=== PATIENT | male | born 1935 | race Caucasian/White ===

== ENCOUNTER → 2016-07-07 08:20 | Outpatient (CLI) | payer MEDICARE, BC ==
[2012-03-01 06:52] VITALS: BMI 21.3
== END ==
LOC: D.MRI 08:20
DX: M54.12 Radiculopathy, cervical region (principal)

== ENCOUNTER → 2017-03-23 09:47 | Outpatient (CLI) | payer MEDICARE, BC ==
[2012-03-01 06:52] VITALS: BMI 21.3
== END | disposition home or self-care (01) ==
LOC: D.RAD 09:47
DX: J32.9 Chronic sinusitis, unspecified (principal)

== ENCOUNTER 2017-06-12 13:05 | Inpatient (IN) | payer MEDICARE, BC ==
[~2017-06-12] VITALS: Ht 182.9 cm; Wt 68.5 kg
[2017-06-12 13:40] LABS: BASOPHILS 0.2 % (0-2); EOSINOPHILS 1.4 % (0-7); HEMATOCRIT 34.6 % (42.0-54.0); HEMOGLOBIN 11.4 g/dL (13.5-17.5); IMMATURE GRANULOCYTES 1.1 % (0-5); LYMPHOCYTES 12.7 % (15-50); MCHC 32.9 g/dL (31.0-37.0); NEUTROPHILS 71.6 % (40-80); PLATELET COUNT 188 10x3/uL (130-400); RBC 3.68 10x6/uL (4.20-6.10); RDW 14.6 % (11.5-14.5); WBC 6.5 10x3/uL (4.8-10.8)
[2017-06-12 14:02] LABS: ANION GAP 19.9 mmol/L (8-16); BILIRUBIN - TOTAL 0.28 mg/dL (0.2-1.3); CALCIUM 8.4 mg/dL (8.5-10.1); CREATININE - SERUM 5.6 mg/dL (0.6-1.3); POTASSIUM - SERUM 3.9 mmol/L (3.5-5.1); PROTEIN - SERUM 6.7 g/dL (6.4-8.2)
[2017-06-12 14:55] LABS: APPEARANCE CLEAR (CLEAR); COLOR DK YELLOW (YELLOW)
[2017-06-12 14:59] LABS: BILIRUBIN NEGATIVE (NEGATIVE); GLUCOSE NEGATIVE (NEGATIVE); KETONE NEGATIVE (NEGATIVE); NITRITE NEGATIVE (NEGATIVE); PROTEIN TRACE mg/dL (NEGATIVE); UROBILINOGEN NORMAL (NORMAL)
[2017-06-12 15:00] LABS: BACTERIA FEW /hpf (NONE SEEN); RED CELLS - URINE 0-5 /hpf (0-5); WHITE CELLS - URINE 0-5 /hpf (0-5)
--- NOTE | 2017-06-12 17:23 | NUR ---
RECEIVED REPORT FROM CURT FERNÁNDEZ IN ER. AWAITING PT ARRIVAL.
--- NOTE | 2017-06-12 18:30 | NUR ---
PT ARRIVED TO UNIT VIA STRETCHER. PT IS ALERT AND ORIENTED. UP WITH STANDBY ASSIST. ON ROOM AIR. IV SEEN TO LEFT AC. WILL START FLAGYL AND FLUIDS ORDERED. WILL DO QUICKSTART AND PASS THIS ALONG IN REPORT TO PAYROLL PROFESSIONAL NURSE.
[2017-06-12] MEDS ORDERED: FENOFIBRATE160 MG PO (18:38)
[2017-06-12] MEDS ORDERED: METOPROLOL TART50 MG PO (18:38)
[2017-06-12] MEDS ORDERED: BENICAR20 MG PO (18:39)
[2017-06-12] MEDS ORDERED: TRAZODONE HCL50 MG PO (18:39)
[2017-06-12] MEDS ORDERED: NEURONTIN 300300 MG (18:40)
[2017-06-12] MEDS ORDERED: ATIVAN0.5 MG PO (18:40)
[2017-06-12] MEDS ORDERED: ACETAMINOPHEN325 MG PO (18:41)
--- NOTE | 2017-06-12 18:46 | NUR ---
SCDS PLACED ON PT ORDERED.
[2017-06-12 19:04] LABS: % SATURATION 7 % (15-55); IRON 19 ug/dl (35-150); TOTAL IRON BIND CAPACITY 266 ug/dl (260-445); UNSAT IRON BIND CAPACITY 247 ug/dl (150-375)
--- NOTE | 2017-06-12 19:24 | NUR ---
1830- DR. AWAN CALLS AND IS ASKING ABOUT PT. I INFORMED DR. AWAN THAT I HAVE NOT YET RECEIVED PT. I WAS STATING THIS TO DR. AWAN ER STAFF IS BRINGING PT TO ROOM. DR. AWAN INFORMED OF WHAT I RECEIVED FROM REPORT FROM ER NURSE (PRADEEP). DR. AWAN GIVES ORDERS TO START IV FLUIDS ON PT AT 75CC. DR. AWAN STATES HE WILL SEE PT TOMORROW.
--- NOTE | 2017-06-12 19:35 | NUR ---
RECEIVED REPORT, WILL ASSUME CARE OF PT, PT DENIES ANY NEEDS, FAMILY AT BED SIDE, SCD ARE ON, BED IS LOW, SRX2, CALL LIGHT IN REACH, WILL CONTINUE PLAN OF CARE
[2017-06-12 20:11] VITALS: BP 102/48
[2017-06-13 00:32] VITALS: BP 108/51
--- NOTE | 2017-06-13 00:57 | NUR ---
PT SLEEPING, BED IS LOW, SRX2, SCD ARE ON, CALL LIGHT IN REACH, WILL CONTINUE PLAN OF CARE
[2017-06-13 04:20] VITALS: BP 112/54
[2017-06-13 05:15] LABS: BASOPHILS 0.2 % (0-2); EOSINOPHILS 2.2 % (0-7); HEMATOCRIT 33.3 % (42.0-54.0); HEMOGLOBIN 10.8 g/dL (13.5-17.5); IMMATURE GRANULOCYTES 4.3 % (0-5); LYMPHOCYTES 16.9 % (15-50); MCH 30.8 pg (26.0-34.0); MCHC 32.4 g/dL (31.0-37.0); MCV 94.9 fL (80.0-100.0); MEAN PLATELET VOLUME 10.6 fL (7.4-10.4); MONOCYTES 15.1 % (2-11); NEUTROPHILS 61.3 % (40-80); PLATELET COUNT 182 10x3/uL (130-400); RBC 3.51 10x6/uL (4.20-6.10); RDW 14.9 % (11.5-14.5); WBC 5.6 10x3/uL (4.8-10.8)
[2017-06-13 05:44] LABS: ALBUMIN 2.5 g/dL (3.4-5.0); ANION GAP 18.8 mmol/L (8-16); BILIRUBIN - TOTAL 0.3 mg/dL (0.2-1.3); CALCIUM 8.3 mg/dL (8.5-10.1); POTASSIUM - SERUM 3.8 mmol/L (3.5-5.1); PROTEIN - SERUM 5.7 g/dL (6.4-8.2)
[2017-06-13 05:46] LABS: CREATININE - SERUM 3.6 mg/dL (0.6-1.3)
--- NOTE | 2017-06-13 07:28 | NUR ---
AM ROUNDING- RECEIVED REPORT FROM KINDER TEACHER NURSE FRANCISCO. PT IS CURRENTLY LAYING IN BED ON BACK WITH EYES CLOSED RESTING. ON ROOM AIR. ON MONITOR SHOWING SR, HR 74. IV SEEN TO LEFT AC WITH NS RUNNING AT 75CC. SCDS ARE ON. NO NEED AT THIS CURRENT TIME. WILL CONTINUE TO MONITOR AND CONTINUE WITH PLAN OF CARE.
[2017-06-13 07:46] VITALS: BP 108/55
--- NOTE | 2017-06-13 09:49 | NUR ---
AM MEDICATIONS GIVEN AND SHIFT ASSESSMENT DONE. PT IS LAYING IN BED WITH EYES OPEN RESTING. INFORMED PT THAT WE NEED STOOL SAMPLE AND WHENEVER HE FEELS NEED TO GO TO LET STAFF KNOW, PT AGREES. WILL CONTINUE TO MONITOR.
[2017-06-13 11:55] LABS: ERYTHROCYTE SEDIMENTATION RATE 50 mm/hr (0-20)
[2017-06-13 12:42] VITALS: BP 113/59
[2017-06-13 12:57] VITALS: BMI 20.5
--- NOTE | 2017-06-13 14:16 | NUR ---
IV MEDICATIONS HUNG ORDERED. PT ASSISTED IN BRIEF DUE TO PT ACCIDENTLY GOING IN PRIOR BRIEF. PT IS AWARE TO LET STAFF KNOW IF NEEDING TO URINATE TO GET URINE SAMPLE ORDERED. PT ATTEMPTED TO GET URINE SAMPLE BUT WASN'T ENOUGH. PT IS NPO ORDERED. NPO SIGN PLACED ON PTS DOOR.
[2017-06-13] MEDS ORDERED: NEURONTIN 300300 MG PO (16:06)
[2017-06-13 16:11] LABS: APPEARANCE CLEAR (CLEAR); BILIRUBIN NEGATIVE (NEGATIVE); COLOR DK YELLOW (YELLOW); GLUCOSE NEGATIVE (NEGATIVE); KETONE NEGATIVE (NEGATIVE); NITRITE POSITIVE (NEGATIVE); PROTEIN NEGATIVE (NEGATIVE); UROBILINOGEN NORMAL (NORMAL)
[2017-06-13 16:13] LABS: BACTERIA FEW /hpf (NONE SEEN); WHITE CELLS - URINE OCC /hpf (0-5)
[2017-06-13 16:17] LABS: CREATININE - URINE 158.3 mg/dL (30-125); PRO/CRE RATIO URINE 0.2 mg/g; PROTEIN - URINE 35.1 mg/dL (0.0-11.9)
[2017-06-13 17:00] VITALS: BP 122/62
--- NOTE | 2017-06-13 18:17 | NUR ---
PT IS CURRENTLY LAYING IN BED WITH EYES OPEN RESTING. IS AT BEDSIDE. NO NEED AT THIS CURRENT TIME. WILL CONTINUE TO MONITOR AND CONTINUE WITH PLAN OF CARE.
[2017-06-13 18:38] VITALS: Ht 182.9 cm; Wt 68.5 kg
[2017-06-13 21:29] VITALS: BP 135/64
--- NOTE | 2017-06-13 23:48 | NUR ---
MARLENY IS LAYING ON HIS BACK, RESTING. REQUEST HELP TO THE BATHROOM AND USES IT WITH MINIMAL ASSIST. HE IS IN A PULL UP BUT THE PULL UP IS DRY AND DOES NOT NEED A NEW ONE. IV INFUSING AND SITE LOOKS GOOD, DRESSING IS CLEAN DRY AND INTACT. SCDS IN PLACE. BED LOW, CALL LIGHT IN REACH. PATIENT REQUESTED ICECHIPS. ORDERS OK THE ICE CHIPS.
[2017-06-14 00:48] VITALS: BP 146/62
--- NOTE | 2017-06-14 03:17 | NUR ---
PT IN BED RESTING QUIETLY. BREATHING EVEN AND UNLABORED. BED IN LOW POSITION, CALL LIGHT WITHIN REACH. WILL CTM.
[2017-06-14 05:25] VITALS: BP 142/64
--- NOTE | 2017-06-14 05:39 | NUR ---
IV ON LEFT AC DC. CATHETER INTACT. NEW IV ON LEFT FOREARM STARTED. PATIENT TOLERATED. 2 STICKS .
[2017-06-14 06:12] LABS: BASOPHILS 0.2 % (0-2); EOSINOPHILS 1.8 % (0-7); HEMATOCRIT 27.9 % (42.0-54.0); HEMOGLOBIN 9.5 g/dL (13.5-17.5); IMMATURE GRANULOCYTES 3.7 % (0-5); LYMPHOCYTES 13.1 % (15-50); MCH 31.5 pg (26.0-34.0); MCHC 34.1 g/dL (31.0-37.0); MEAN PLATELET VOLUME 10.7 fL (7.4-10.4); MONOCYTES 12.7 % (2-11); NEUTROPHILS 68.5 % (40-80); PLATELET COUNT 180 10x3/uL (130-400); RBC 3.02 10x6/uL (4.20-6.10); RDW 14.6 % (11.5-14.5); WBC 4.9 10x3/uL (4.8-10.8)
[2017-06-14 06:29] LABS: MCV 92.4 fL (80.0-100.0)
[2017-06-14 06:33] LABS: ALBUMIN 2.3 g/dL (3.4-5.0); BILIRUBIN - TOTAL 0.28 mg/dL (0.2-1.3); CALCIUM 7.5 mg/dL (8.5-10.1); CARBON DIOXIDE 19.1 mmol/L (21.0-32.0); POTASSIUM - SERUM 3.7 mmol/L (3.5-5.1); PROTEIN - SERUM 4.8 g/dL (6.4-8.2)
[2017-06-14 06:37] LABS: ANION GAP 15.6 mmol/L (8-16); CREATININE - SERUM 1.5 mg/dL (0.6-1.3)
--- NOTE | 2017-06-14 07:53 | NUR ---
AM ROUNDS - PT IS IN BED AND AWAKE AT THIS TIME. STAND BY ASSIST. MONITOR SHOWING SR, HR 64. LEFT FA, NS AT 75 (IV INFILTRATED AT THIS TIME). YELLOW BAND ON. SCD ON. BED AT LOWEST POSITION. CALL CRAVEN IN USE/REACH. SIDE RAILS UP X2. WILL CONITNUE TO MONITOR
[2017-06-14 08:09] VITALS: BP 133/88
[2017-06-14 09:15] LABS: FOLATE (FOLIC ACID) - SERUM 17.5 ng/mL (>3.0)
[2017-06-14 12:54] VITALS: BP 145/72
--- NOTE | 2017-06-14 14:50 | NUR ---
UNABLE TO GIVE FERRLECIT AT THIS TIME. MED NOT ON FLOOR. PHARMACY NOTIFIED AT 1330. WILL CONTINUE TO MONITOR
[2017-06-14 15:59] VITALS: BP 144/75
--- NOTE | 2017-06-14 16:42 | NUR ---
PT IN BED AT THIS TIME WITH NO NEEDS. WILL CONTINUE TO MONITOR
[2017-06-14 22:15] VITALS: BP 153/76
[2017-06-15 04:00] VITALS: BP 95/44
--- NOTE | 2017-06-15 04:39 | NUR ---
SUPERVISOR INSECTICIDE AT BEDSIDE TO OBTAIN VITALS, CALL LIGHT IN REACH. WILL CONTINUE WITH PLAN OF CARE.
--- NOTE | 2017-06-15 05:44 | NUR ---
PATIENT RESTING IN DARK ROOM AT THIS TIME. DENIES ANY NEEDS. BED LOW, CALL LIGHT IN REACH.
[2017-06-15 06:02] LABS: BASOPHILS 0.2 % (0-2); EOSINOPHILS 1.6 % (0-7); HEMATOCRIT 30.8 % (42.0-54.0); HEMOGLOBIN 10.5 g/dL (13.5-17.5); IMMATURE GRANULOCYTES 3.9 % (0-5); LYMPHOCYTES 10.9 % (15-50); MCH 30.7 pg (26.0-34.0); MCHC 34.1 g/dL (31.0-37.0); MEAN PLATELET VOLUME 10.3 fL (7.4-10.4); MONOCYTES 16.7 % (2-11); NEUTROPHILS 66.7 % (40-80); PLATELET COUNT 193 10x3/uL (130-400); RBC 3.42 10x6/uL (4.20-6.10); RDW 14.3 % (11.5-14.5); WBC 5.2 10x3/uL (4.8-10.8)
[2017-06-15 06:08] LABS: MCV 90.1 fL (80.0-100.0)
[2017-06-15 06:29] LABS: ALBUMIN 2.6 g/dL (3.4-5.0); ANION GAP 13.2 mmol/L (8-16); BILIRUBIN - TOTAL 0.42 mg/dL (0.2-1.3); CALCIUM 8.7 mg/dL (8.5-10.1); CREATININE - SERUM 1.3 mg/dL (0.6-1.3); POTASSIUM - SERUM 3.2 mmol/L (3.5-5.1); PROTEIN - SERUM 5.7 g/dL (6.4-8.2)
--- NOTE | 2017-06-15 07:51 | NUR ---
RECEIVED REPORT ON PATIENT. MORNING ROUNDS MADE. PATIENT RESTING IN BED WITH EYES CLOSED, CHEST RISES AND FALLS EQUALLY BILAT. BED IN LOWEST POSITION, SR UP X 2, CL IN REACH. CPOC.
[2017-06-15 08:46] VITALS: BP 154/86
--- NOTE | 2017-06-15 10:14 | NUR ---
PATIENT TRANSPORTED TO RADIOLOGY VIA WHEELCHAIR.
--- NOTE | 2017-06-15 11:10 | NUR ---
PATIENT BACK FROM RADIOLOGY. REFUSED SCDS
[2017-06-15 12:07] VITALS: BP 168/92
--- NOTE | 2017-06-15 12:18 | NUR ---
Nutrition follow-up: Pt remains NPO; noted pt have start clears soon Labs reviewed +BM Wt: 156# Will need to start nutrition support if diet unable to advance past clears within 48-72 hours. RDN following.
--- NOTE | 2017-06-15 12:57 | NUR ---
RESTING QUIETLY IN BED WITHOUT DISTRESS NOR COMPLAINTS. WILL CONTINUE TO MONITOR.
[2017-06-15 14:20] LABS: SPE - ALBUMIN 2.6 g/dL (2.9-4.4); SPE - ALPHA-1 GLOBULIN 0.4 g/dL (0.0-0.4); SPE - ALPHA-2 GLOBULIN 0.8 g/dL (0.4-1.0); SPE - BETA GLOBULIN 0.6 g/dL (0.7-1.3); SPE - GAMMA GLOBULIN 0.7 g/dL (0.4-1.8); SPE - M-SPIKE 0.1 g/dL (Not Observed); SPE - TOTAL PROTEIN 5.1 g/dL (6.0-8.5)
[2017-06-15 15:32] LABS: UPE RAND - ALPHA 2 GLOBULIN 25.3 % (()); UPE RAND - GAMMA GLOBULIN 12.7 % (())
--- NOTE | 2017-06-15 15:46 | NUR ---
R.FA PIV INFILTRATED. D/C WITH CATH TIP FULLY INTACT. 20 GUAGE X1 STICK INSERTED TO R.UPPER ARM AND PROCALAMINE @50ML/HR INFUSING. 22 GUAGE X1 STICK INSERTED TO R.WRIST WITH IRON INFUSING. PT DENIES ANY FURTHER NEEDS AT THIS TIME. CL IN REACH.
[2017-06-15 19:00] VITALS: BP 163/89
--- NOTE | 2017-06-15 19:34 | NUR ---
EVENING ROUNDS MADE. PATIENT LAYING IN BED, WATCHING TV. NAD NOTED. BED IN LOWEST POSITION, CALL LIGHT IN REACH, SR UP X 2. DENIES ANY NEEDS AT THIS TIME. REPORT GIVEN TO HOIST CYLINDER LOADER. CPOC.
--- NOTE | 2017-06-15 19:35 | NUR ---
ASSESSMENT COMPLETE, A&O. RESPERATIONS EVEN ON RA. IV TO LEFT AC WITH PROCAL INFUSING AT 50 CC/HR, SECOND IV TO TO LEFT WRIST WITH D5W INFUSING AT 75 CC/HR. BOTH SITES CLEAN AND DRY. PT DENIES PAIN OR NEEDS, BED LOW, CL IN REACH.
--- NOTE | 2017-06-16 03:33 | NUR ---
RESTING WITH EYES CLOSED, RESPERATIONS EVEN, NO S/S DISTRESS NOTED.
[2017-06-16 04:00] VITALS: BP 157/89
[2017-06-16 05:26] LABS: BASOPHILS 0.1 % (0-2); EOSINOPHILS 1.3 % (0-7); HEMATOCRIT 30.4 % (42.0-54.0); HEMOGLOBIN 10.5 g/dL (13.5-17.5); LYMPHOCYTES 9.1 % (15-50); MCH 30.8 pg (26.0-34.0); MCHC 34.5 g/dL (31.0-37.0); MCV 89.1 fL (80.0-100.0); MEAN PLATELET VOLUME 9.9 fL (7.4-10.4); MONOCYTES 16.2 % (2-11); NEUTROPHILS 68.3 % (40-80); PLATELET COUNT 202 10x3/uL (130-400); RBC 3.41 10x6/uL (4.20-6.10)
[2017-06-16 05:40] LABS: WBC 6.7 10x3/uL (4.8-10.8)
[2017-06-16 06:38] LABS: ALBUMIN 2.4 g/dL (3.4-5.0); ALKALINE PHOSPHATASE 48 U/L (46-116); ALT (SGPT) 23 U/L (10-68); AMYLASE - SERUM 155 U/L (25-115); CALC OSMOLALITY 287 mosm/kg (275-300); CALCIUM 8.9 mg/dL (8.5-10.1); CHLORIDE - SERUM 108 mmol/L (98-107); GLUCOSE 135 mg/dL (74-106); MAGNESIUM - SERUM 1.7 mg/dL (1.8-2.4); PHOSPHOROUS 1.8 mg/dL (2.5-4.9); POTASSIUM - SERUM 3.3 mmol/L (3.5-5.1); PROTEIN - SERUM 5.6 g/dL (6.4-8.2); SODIUM 140 mmol/L (136-145); eGFR NON AFRICAN AMERICAN 76 mL/min (90-120)
[2017-06-16 06:39] LABS: LIPASE 1978 U/L (73-393); UREA NITROGEN 33 mg/dL (7-18)
--- NOTE | 2017-06-16 08:01 | NUR ---
AM ROUNDS - PT AWAKE AND IN BED AT THIS TIME. MONITOR SHOWING ST, HR 106. PT ON ROOM AIR. LEFT AC, PROCAL AT 50CC/HR AND LEFT WRIST, D5W AT 75CC/HR. BED AT LOWEST POSITION. CALL CRAVEN INUSE/REACH. SIDE RAILS UP X2. WILL CONTINUE TO MONITOR
[2017-06-16 08:55] VITALS: BP 160/85
[2017-06-16 11:46] VITALS: BP 158/83
--- NOTE | 2017-06-16 14:28 | NUR ---
NOT ABLE TO GIVE FERRLECIT. NOT ON FLOOR AT THIS TIME. PHARMACY NOTIFIED.
--- NOTE | 2017-06-16 14:45 | NUR ---
PT IN BED AT THIS TIME. NO NEEDS. WILL CONTINUE TO MONITOR
[2017-06-16 15:46] VITALS: BP 157/89
--- NOTE | 2017-06-16 20:10 | NUR ---
ENTERED ROOM, PT IN BED WATCHING TV, IV TO LEFT WRIST WITH D5W INFUSING AT 75 CC/HR AND PROCAL INFUSING AT 50 CC/HR TO LEFT FOREARM. RESPERATIONS EVEN ON RA. PT DENIES PAIN OR NEEDS, BED LOW, CL IN REACH.
[2017-06-16 21:04] VITALS: BP 143/85
[2017-06-17 00:52] VITALS: BP 147/81
--- NOTE | 2017-06-17 01:12 | NUR ---
PT RESTING WITH EYES CLOSED. RESP EVEN AND REGULAR. SR UP X2, CALL LIGHT WITHIN REACH.
--- NOTE | 2017-06-17 03:50 | NUR ---
RESTING WITH EYES CLOSED, RESPERATIONS EVEN NO S/S DISTRESS NOTED.
[2017-06-17 05:21] VITALS: BP 160/87
[2017-06-17 06:57] LABS: BASOPHILS 0.1 % (0-2); EOSINOPHILS 1.1 % (0-7); HEMATOCRIT 29.9 % (42.0-54.0); HEMOGLOBIN 10.5 g/dL (13.5-17.5); IMMATURE GRANULOCYTES 4.3 % (0-5); MCH 31.1 pg (26.0-34.0); MCHC 35.1 g/dL (31.0-37.0); MCV 88.5 fL (80.0-100.0); MEAN PLATELET VOLUME 10.3 fL (7.4-10.4); NEUTROPHILS 73.5 % (40-80); PLATELET COUNT 198 10x3/uL (130-400); RBC 3.38 10x6/uL (4.20-6.10); RDW 13.8 % (11.5-14.5); WBC 7.2 10x3/uL (4.8-10.8)
[2017-06-17 07:29] LABS: ALBUMIN 2.4 g/dL (3.4-5.0); ANION GAP 10.7 mmol/L (8-16); BILIRUBIN - TOTAL 0.88 mg/dL (0.2-1.3); CALCIUM 8.9 mg/dL (8.5-10.1); CARBON DIOXIDE 24.4 mmol/L (21.0-32.0); CREATININE - SERUM 1.1 mg/dL (0.6-1.3); POTASSIUM - SERUM 3.1 mmol/L (3.5-5.1); PROTEIN - SERUM 5.6 g/dL (6.4-8.2)
[2017-06-17 08:00] VITALS: BP 116/90
--- NOTE | 2017-06-17 08:15 | NUR ---
AM ROUNDS - PT IS IN BED AND APPEARS TO BE SLEEPING WITH EQUAL AND NON LABORED BREATHING. BED AT LOWEST POSITION. CALL CRAVEN IN USE/REACH. SIDE RAILS UP X2. IV TO RIGHT AC, PROCAL AT 50CC/HR AND RIGHT WRIST, D5W AT 75CC/HR. WILL CONTINFRANCISCOT O YULIAIOR
[2017-06-17 12:00] VITALS: BP 140/86
--- NOTE | 2017-06-17 16:33 | NUR ---
UNABLE TO GIVE IRON REPLACEMENT AT THIS TIME. NOT AVAILABLE TO GIVE. PHARMACY NOTIFIED TWICE
--- NOTE | 2017-06-17 17:18 | NUR ---
PT IN BED AT THIS TIME. AT BEDSIDE AT THIS TIME. NO NEEDS WILL CONTINUE TO MONITOR
--- NOTE | 2017-06-17 19:43 | NUR ---
RECEIVED REPORT, WILL ASSUME CARE OF PT, PT LYING QUIETLY, DENIES ANY NEEDS AT THIS TIME, BED IS LOW, SRX2, CALL LIGHT IN REACH, WILL CONTINUE PLAN OF CARE
[2017-06-17 20:00] VITALS: BP 158/85
[2017-06-18 04:00] VITALS: BP 149/83
--- NOTE | 2017-06-18 04:37 | NUR ---
PT SLEEPING, BED IS LOW, SRX2, CALL LIGHT IN REACH
[2017-06-18 05:39] LABS: BASOPHILS 0.1 % (0-2); EOSINOPHILS 3.1 % (0-7); HEMATOCRIT 28.6 % (42.0-54.0); IMMATURE GRANULOCYTES 2.7 % (0-5); LYMPHOCYTES 8.4 % (15-50); MCH 31.1 pg (26.0-34.0); MCV 88.8 fL (80.0-100.0); MEAN PLATELET VOLUME 10.3 fL (7.4-10.4); MONOCYTES 11.6 % (2-11); NEUTROPHILS 74.1 % (40-80); PLATELET COUNT 209 10x3/uL (130-400); RBC 3.22 10x6/uL (4.20-6.10); RDW 13.9 % (11.5-14.5); WBC 7.4 10x3/uL (4.8-10.8)
[2017-06-18 06:19] LABS: ALBUMIN 2.2 g/dL (3.4-5.0); ANION GAP 14.4 mmol/L (8-16); BILIRUBIN - TOTAL 0.6 mg/dL (0.2-1.3); CALCIUM 8.9 mg/dL (8.5-10.1); CREATININE - SERUM 1.1 mg/dL (0.6-1.3); POTASSIUM - SERUM 3.4 mmol/L (3.5-5.1); PROTEIN - SERUM 5.3 g/dL (6.4-8.2)
--- NOTE | 2017-06-18 07:30 | NUR ---
AM ROUNDS - PT IS AWAKE AND IN BED AT THIS TIME. MONITOR SHOWING SR. IV TO RIGHT AC, PROCAL AND RIGTH WRIST, D5W AT 675CC/HR. BED AT LOWEST POSITION. CALL CRAVEN IN USE/REACH. SIDE RAILS UP X2.
[2017-06-18 08:00] VITALS: BP 154/87
[2017-06-18 12:00] VITALS: BP 147/93
--- NOTE | 2017-06-18 14:44 | NUR ---
UNABLE TO GIVE IV IRON AT THIS TIME. NOT AVAILABLE ON THE FLOOR. PHARMACY NOTIFIED. WILL CONITNUE TO MONITOR
[2017-06-18 16:00] VITALS: BP 147/83
--- NOTE | 2017-06-18 16:42 | NUR ---
UNABLE TO GIVE IV IRON. NOT AVAILABLE ON THE FLOOR TO GIVE. PHARMACY NOTIFIED AGAIN. MED WAS DUE AT 1430. WILL CONTINUE TO MONITOR
[2017-06-18 20:00] VITALS: BP 144/89
--- NOTE | 2017-06-18 23:45 | NUR ---
PATIENT IS RESTING IN DARK ROOM. AWAKE AND ALERT , DENIES ANY PAIN AT THIS TIME. BED LOW, CALL LIGHT IN REACH.
[2017-06-19] VITALS: BP 148/86
[2017-06-19 04:00] VITALS: BP 147/85
--- NOTE | 2017-06-19 07:10 | NUR ---
RECEIVED REPORT ON PATIENT. MORNING ROUNDS MADE. PATIENT LAYING IN DARK ROOM, EYES CLOSED, NAD NOTED. BED IN LOWEST POSITION, CL IN REACH, SR UP X 2. WILL CONTINUE TO MONITOR. CPOC.
[2017-06-19 07:58] VITALS: BP 149/81
[2017-06-19 11:43] LABS: BASOPHILS 0.1 % (0-2); EOSINOPHILS 3.4 % (0-7); HEMATOCRIT 31.6 % (42.0-54.0); HEMOGLOBIN 10.7 g/dL (13.5-17.5); IMMATURE GRANULOCYTES 1.6 % (0-5); LYMPHOCYTES 6.3 % (15-50); MCH 30.7 pg (26.0-34.0); MCHC 33.9 g/dL (31.0-37.0); MCV 90.5 fL (80.0-100.0); MONOCYTES 9.5 % (2-11); NEUTROPHILS 79.1 % (40-80); PLATELET COUNT 203 10x3/uL (130-400); RBC 3.49 10x6/uL (4.20-6.10); RDW 14.1 % (11.5-14.5)
[2017-06-19 11:44] LABS: WBC 10.2 10x3/uL (4.8-10.8)
[2017-06-19 12:07] LABS: ALBUMIN 2.4 g/dL (3.4-5.0); ALKALINE PHOSPHATASE 57 U/L (46-116); ALT (SGPT) 18 U/L (10-68); CALC OSMOLALITY 275 mosm/kg (275-300); CALCIUM 8.9 mg/dL (8.5-10.1); CARBON DIOXIDE 22.9 mmol/L (21.0-32.0); CHLORIDE - SERUM 104 mmol/L (98-107); GLUCOSE 114 mg/dL (74-106); POTASSIUM - SERUM 3.8 mmol/L (3.5-5.1); PROTEIN - SERUM 5.7 g/dL (6.4-8.2); SODIUM 137 mmol/L (136-145); UREA NITROGEN 15 mg/dL (7-18); eGFR NON AFRICAN AMERICAN 76 mL/min (90-120)
[2017-06-19 12:09] LABS: AMYLASE - SERUM 206 U/L (25-115); LIPASE 2439 U/L (73-393)
[2017-06-19 12:22] VITALS: BP 141/77
--- NOTE | 2017-06-19 13:35 | NUR ---
RESTING QUIETLY WITHOUT ANY DISTRESS NOR COMPLAINTS. MONITOR SHOWS SR @ RATE OF 75. WILL CONTINUE TO MONITOR.
[2017-06-19 16:35] VITALS: BP 135/78
--- NOTE | 2017-06-19 19:18 | NUR ---
EVENING ROUNDS MADE. PATIENT SITTING UP IN BED, FAMILY AT BEDSIDE. DENIES ANY NEEDS AT THIS TIME. BED IN LOWEST POSITION, CL IN REACH, SR UP X 2. CPOC.
[2017-06-19 19:28] LABS: % SATURATION 38 % (15-55); IRON 118 ug/dl (35-150); UNSAT IRON BIND CAPACITY 188 ug/dl (150-375)
[2017-06-19 19:32] LABS: TOTAL IRON BIND CAPACITY 306 ug/dl (260-445)
[2017-06-19 22:39] VITALS: BP 139/78
[2017-06-20 05:20] LABS: BASOPHILS 0 % (0-2); EOSINOPHILS 4.1 % (0-7); HEMATOCRIT 30.5 % (42.0-54.0); HEMOGLOBIN 10.6 g/dL (13.5-17.5); IMMATURE GRANULOCYTES 1.1 % (0-5); LYMPHOCYTES 8.1 % (15-50); MCH 31.5 pg (26.0-34.0); MCHC 34.8 g/dL (31.0-37.0); MCV 90.5 fL (80.0-100.0); MEAN PLATELET VOLUME 10.5 fL (7.4-10.4); MONOCYTES 9.3 % (2-11); NEUTROPHILS 77.4 % (40-80); PLATELET COUNT 210 10x3/uL (130-400); RBC 3.37 10x6/uL (4.20-6.10); RDW 14.3 % (11.5-14.5); WBC 8.8 10x3/uL (4.8-10.8)
[2017-06-20 05:46] LABS: ALBUMIN 2.3 g/dL (3.4-5.0); ALKALINE PHOSPHATASE 55 U/L (46-116); ALT (SGPT) 17 U/L (10-68); AMYLASE - SERUM 181 U/L (25-115); CALC OSMOLALITY 275 mosm/kg (275-300); CALCIUM 8.5 mg/dL (8.5-10.1); CARBON DIOXIDE 23.1 mmol/L (21.0-32.0); CHLORIDE - SERUM 104 mmol/L (98-107); GLUCOSE 114 mg/dL (74-106); MAGNESIUM - SERUM 1.6 mg/dL (1.8-2.4); PHOSPHOROUS 3.2 mg/dL (2.5-4.9); POTASSIUM - SERUM 3.5 mmol/L (3.5-5.1); PROTEIN - SERUM 5.4 g/dL (6.4-8.2); SODIUM 137 mmol/L (136-145); UREA NITROGEN 14 mg/dL (7-18); eGFR NON AFRICAN AMERICAN 76 mL/min (90-120)
[2017-06-20 05:59] LABS: LIPASE 1844 U/L (73-393)
[2017-06-20 06:16] VITALS: BP 130/80
[2017-06-20 07:54] VITALS: BP 127/82
--- NOTE | 2017-06-20 08:07 | NUR ---
DOING AM ROUNDS. WHEN ASSESSING PT, A RASH IS PRESENT ON ABD, UPPER LEGS, LOWER BACK AND GROIN AREA. Zainab COLEY APN CALLED AND ORDERS RECEIVED FOR BENADRYL IV.
[2017-06-20 12:15] VITALS: BP 121/77
--- NOTE | 2017-06-20 13:23 | NUR ---
Nutrition follow-up: ProcalAmine infusing @ 50 ml/hr Pt unable to tolerate clears at this time; causes diarrhea Labs reviewed +BM, more formed If pt unable to tolerate at least full liquids will need to consider starting TPN due to PPN only providin kcal 36 gm protein Also suggest increasing PPN to 125 ml/hr with 20% 250 ml intralipids every day (if TG are < 400 mg) to provide: 1595 kcal 90 gm protein RDN following.
[2017-06-20 15:30] VITALS: BP 142/83
--- NOTE | 2017-06-20 16:25 | NUR ---
PT STILL HAS RASH BUT NOT PROMINENT. HAS BEEN UP IN ROOM AND ALSO IN HALLWAY WITH PT. HAS TOLERATED DIET WELL.
--- NOTE | 2017-06-20 19:21 | NUR ---
RESTING QUIETLY. HAS BEEN UP TO BR BY SELF.
[2017-06-20 21:12] VITALS: BP 140/80
--- NOTE | 2017-06-21 00:12 | NUR ---
2100 REPORT RECIEVED FROM KURT ELIAS, SHIFT ASSESSMENT COMPLETE, PLEASE SEE FLOW SHEET FOR DETAILS. DENIES ANY PAIN NEEDS ATT, WILL CPOC. 2245 C/O PAIN, WILL GIVE PAIN MEDS PER ORDERS.
[2017-06-21 00:48] VITALS: BP 133/81
--- NOTE | 2017-06-21 04:33 | NUR ---
RESTING, WOKE EASILY, DENIES PAIN/NEEDS ATT. BED LOW AND LOCKED, CALL LIGHT IN REACH. WILL CPOC.
[2017-06-21 05:03] LABS: BASOPHILS 0.1 % (0-2); EOSINOPHILS 4.1 % (0-7); HEMATOCRIT 31.8 % (42.0-54.0); HEMOGLOBIN 10.8 g/dL (13.5-17.5); IMMATURE GRANULOCYTES 0.8 % (0-5); LYMPHOCYTES 8.2 % (15-50); MCH 30.9 pg (26.0-34.0); MCV 91.1 fL (80.0-100.0); MEAN PLATELET VOLUME 10.2 fL (7.4-10.4); MONOCYTES 9.3 % (2-11); NEUTROPHILS 77.5 % (40-80); PLATELET COUNT 198 10x3/uL (130-400); RBC 3.49 10x6/uL (4.20-6.10); RDW 14.2 % (11.5-14.5); WBC 8.5 10x3/uL (4.8-10.8)
[2017-06-21 05:29] LABS: ALBUMIN 2.5 g/dL (3.4-5.0); ANION GAP 8.2 mmol/L (8-16); BILIRUBIN - TOTAL 0.3 mg/dL (0.2-1.3); CALCIUM 8.7 mg/dL (8.5-10.1); CARBON DIOXIDE 23.6 mmol/L (21.0-32.0); CREATININE - SERUM 1.1 mg/dL (0.6-1.3); MAGNESIUM - SERUM 1.7 mg/dL (1.8-2.4); PHOSPHOROUS 3.5 mg/dL (2.5-4.9); POTASSIUM - SERUM 3.8 mmol/L (3.5-5.1); PROTEIN - SERUM 5.8 g/dL (6.4-8.2)
[2017-06-21 05:33] VITALS: BP 146/89
[2017-06-21 07:46] VITALS: BP 125/80
[2017-06-21 12:51] VITALS: BP 136/79
[2017-06-21 15:48] VITALS: BP 146/82
[2017-06-21 21:02] VITALS: BP 153/87
--- NOTE | 2017-06-21 21:27 | NUR ---
PT REPORTS HIS NOSE BEING VERY DRY.WILL REQUEST NASAL SPRAY FOR HIM.
[2017-06-22 00:13] VITALS: BP 131/78
--- NOTE | 2017-06-22 01:09 | NUR ---
IV IN LEFT WRIST BECAME INFILTRATED AND HAD TO BE DISCONTINUED. NEW IV STARTED IN LEFT FOREARM , 22G, ONE STICK. D5W INFUSING AT 75ML/HR. PATIENT TOLERATED.BED LOW CALL LIGHT IN REACH.
[2017-06-22 06:20] LABS: BASOPHILS 0.1 % (0-2); EOSINOPHILS 5.2 % (0-7); HEMATOCRIT 32.7 % (42.0-54.0); HEMOGLOBIN 11.1 g/dL (13.5-17.5); IMMATURE GRANULOCYTES 0.7 % (0-5); LYMPHOCYTES 6.5 % (15-50); MCHC 33.9 g/dL (31.0-37.0); MCV 91.3 fL (80.0-100.0); MEAN PLATELET VOLUME 10.7 fL (7.4-10.4); MONOCYTES 12.4 % (2-11); NEUTROPHILS 75.1 % (40-80); PLATELET COUNT 215 10x3/uL (130-400); RBC 3.58 10x6/uL (4.20-6.10); RDW 14.3 % (11.5-14.5); WBC 8.2 10x3/uL (4.8-10.8)
[2017-06-22 06:26] LABS: ALBUMIN 2.5 g/dL (3.4-5.0); ALKALINE PHOSPHATASE 60 U/L (46-116); ALT (SGPT) 18 U/L (10-68); BILIRUBIN - TOTAL 0.33 mg/dL (0.2-1.3); CALC OSMOLALITY 273 mosm/kg (275-300); CALCIUM 8.8 mg/dL (8.5-10.1); CARBON DIOXIDE 24.4 mmol/L (21.0-32.0); CHLORIDE - SERUM 104 mmol/L (98-107); GLUCOSE 112 mg/dL (74-106); LIPASE 660 U/L (73-393); MAGNESIUM - SERUM 1.8 mg/dL (1.8-2.4); PHOSPHOROUS 3.4 mg/dL (2.5-4.9); POTASSIUM - SERUM 3.7 mmol/L (3.5-5.1); PROTEIN - SERUM 5.7 g/dL (6.4-8.2); SODIUM 137 mmol/L (136-145); UREA NITROGEN 10 mg/dL (7-18); eGFR NON AFRICAN AMERICAN 76 mL/min (90-120)
[2017-06-22 06:30] LABS: AMYLASE - SERUM 92 U/L (25-115)
[2017-06-22 08:14] VITALS: BP 124/79
--- NOTE | 2017-06-22 11:49 | NUR ---
PT STATES DOING WELL AND INSIST HE IS SUPPOSED TO LEAVE TODAY. CALL LIGHT WITH IN REACH. CONT TO YULIA.
[2017-06-22 12:09] VITALS: BP 157/63
[2017-06-22] MEDS ORDERED: Pancrease 5000,17,00 PO (13:28)
[2017-06-22] MEDS ORDERED: PEPCID20 MG PO (13:28)
[2017-06-22] MEDS ORDERED: CREON DR 6,0001 EACH PO (13:37)
--- NOTE | 2017-06-22 15:12 | NUR ---
REMOVED PT IV CATH INTACT, SECURED AND TYPED. REMOVED TELEM. WILL CONT TO [facility]ULIA AND HAVE PT SIGN DISCHARGE PAPERS
--- NOTE | 2017-06-22 17:10 | NUR ---
Patient Name: MATT CEJA Admission Status: ER Accout number: [id number] Admission Date: 06-12-2017 : 1933 Admission Diagnosis:UNSPECIFIED ABDOMINAL PAIN Attending: SAUD HERNANDEZ Current LOS: 10 Anticipated DC Date: 06-22-2017 Planned Disposition: Home Primary Insurance: MEDICARE A & B LATE ENTRY: Discharge Planning Comments: * Is the patient Alert and Oriented? Yes 0 * How many steps to enter\exit or inside your home? NONE 0 * PCP DR. MIKE 0 * Pharmacy [facility] 0 * Preadmission Environment Home with Family 0 * ADLs Independent 0 * Equipment Cane 0 * Other Equipment [employer] 0 * List name and contact numbers for known caregivers / representatives who currently or will assist patient after discharge: SUZY AQUINO, DAUGHTER, 0 * Community resources currently utilized None 0 * Please name any agencies selected above. NONE 0 * Additional services required to return to the preadmission environment? No 0 * Can the patient safely return to the preadmission environment? Yes 0 * Has this patient been hospitalized within the prior 30 days at any hospital? No 0 CM MET WITH PT IN ROOM TO DISCUSS DISCHARGE PLANNING AND NEEDS. PT REPORTS LIVING AT HOME INDEPENDENTLY WITH SPOUSE. PT HAS A CANE FROM [employer]. PT HAS NO OUTSIDE SERVICES ASSISTING IN THE HOME. CM DISCUSSED AVAILABILITY OF HOME HEALTH, REHAB SERVICES AND MEDICAL EQUIPMENT. PT DENIES DISCHARGE NEEDS, REPORTS HIS IS ON THE WAY TO PICK HIM UP FOR DISCHARGE HOME. IMPORTANT MESSAGE FROM MEDICARE PROVIDED AND EXPLAINED. Sucker Machine Operator: Jerald Venegas
== END 2017-06-22 16:29 | disposition home or self-care (01) | DRG 438 ==
LOC: D.ER 13:05 → D.M2 16:46
PROVIDERS: Emergency Medicine; Family Medicine; Internal Medicine Gastroenterology; Internal Medicine Nephrology; ADMIT Family Medicine
DX: K85.00 Idiopathic acute pancreatitis without necrosis or infection (principal); N17.0 Acute kidney failure with tubular necrosis; K57.92 Diverticulitis of intestine, part unspecified, without perforation or abscess without bleeding; E87.0 Hyperosmolality and hypernatremia; I12.9 Hypertensive chronic kidney disease with stage 1 through stage 4 chronic kidney disease, or unspecified chronic kidney disease; N18.9 Chronic kidney disease, unspecified; E78.5 Hyperlipidemia, unspecified; D64.9 Anemia, unspecified; I25.10 Atherosclerotic heart disease of native coronary artery without angina pectoris; Z95.5 Presence of coronary angioplasty implant and graft; Z87.891 Personal history of nicotine dependence; E87.6 Hypokalemia; E86.9 Volume depletion, unspecified; R19.7 Diarrhea, unspecified; R21 Rash and other nonspecific skin eruption